=== PATIENT | female | born 1955 | race Caucasian/White ===

== ENCOUNTER → 2017-12-17 | Day surgery (SDC) | payer OTHER ==
--- NOTE | 2017-12-20 15:15 | PATH ---
Surgical Pathology Report Patient Name: JAE ROTH [facility]. Rec. #: [id number] /Age/Gender: 1955 (Age: 62) / F Account: [id number] Location: RADIOLOGY ULTRA Taken: 12/17/2017 Received: 12/17/2017 Reported: 12/20/2017 Physicians: Susan Cline M.D. Specimen(s) Received LEFT BREAST 2:00 4CM FN CORE BX Clinical History Ultrasound findings: Suspicious Final Diagnosis BREAST, LEFT, 2:00, 4 CM FN, CORE BIOPSY: BENIGN BREAST TISSUE SHOWING STROMAL FIBROSIS. Electronically Signed Valerie Gilliland M.D. Gross Description Received in formalin, labeled "left breast 2:00 4 cm fn" are two cores of light ferguson and yellow-ferguson tissue measuring 1.3 cm and 1.5 cm in length with a diameter of up to 0.1 cm. Entirely submitted in one cassette. Time to formalin fixation: 2 minutes Total formalin fixation time: Approximately 7 hours AE/12/20/2017 ebram/12/20/2017
== END | disposition home or self-care (01) ==
LOC: FRADUS-SUR 11:39
PROVIDERS: ATTEND Surgery Surgical Oncology
PROC: 0HBU3ZX Excision of Left Breast, Percutaneous Approach, Diagnostic (ICD-10-PCS; principal; 2017-12-17)
DX: N60.32 Fibrosclerosis of left breast (principal); N63.21 Unspecified lump in the left breast, upper outer quadrant
CPT/HCPCS: 19083; 77065-TC; 87899; 88305-TC; A4648